=== PATIENT | male | born 1965 | race Caucasian/White ===

== ENCOUNTER 2023-11-28 08:13 | Emergency (ER) | payer BC, SELFPAY ==
[2023-11-28 08:28] VITALS: BP 133/85; PULSE 87; RESP 18; TEMP 36.9; O2SAT 94
[2023-11-28 09:09] LABS: Basophils % 0.6 %; Eosinophils # 0.1 10^3/uL (0.0-0.8); Eosinophils % 2.1 %; Hematocrit 43.3 % (37-53); Lymphocytes # 1.6 10^3/uL (0.8-4.8); Mean Corpuscular HGB Conc 34.2 g/dL (30-55); Mean Corpuscular Hemoglobin 31.2 pg (27-33); Mean Corpuscular Volume 91.4 fl (82-101); Monocytes # 0.8 10^3/uL (0.2-0.9); Monocytes % 11.4 %; Neutrophils % 62.2 %; Nucleated Red Blood Cells % 0 %; Platelet Count 203 10^3/cmm (157-399); Red Blood Count 4.74 10^6/uL (3.85-5.65); Red Cell Distribution Width 12.2 % (12.1-15.1); White Blood Count 6.75 10^3/uL (3.29-11.43)
[2023-11-28 09:26] LABS: Alanine Aminotransferase 15 U/L (0-41); Alkaline Phosphatase 60 U/L (40-130); Aspartate Amino Transferase 13 U/L (0-40); Blood Urea Nitrogen 24 mg/dL (6-20); Calcium 9.1 mg/dL (8.5-10.5); Carbon Dioxide 24 mmol/L (22-29); Chloride 102 mmol/L (98-107); Globulin 3.4 g/dL (1.3-4.6); Glucose 109 mg/dL (65-115); Osmolality Calculated 287 mOsm/kg (285-295); Sodium 136 mmol/L (136-145); Total Bilirubin 0.5 mg/dL (0.15-1.2); Total Protein 7.4 g/dL (6.6-8.7)
[2023-11-28] MEDS: sodium chloride 0.9% 1,000 ML 999 ML IV (09:33)
[2023-11-28] MEDS: ketorolac 30 mg/mL INJ IVP (09:34)
--- NOTE | 2023-11-28 09:47 | ED_ITS ---
HPI - Headache 2 General: Chief Complaint: Headache Stated Complaint: headache Time Seen by Provider: 11/28/23 08:18 Source: patient Mode of arrival: ambulatory History of Present Illness: 58-year-old male presents emergency room complaining of frontal sinus pain and pressure generally not feeling well night sweats last cough cold and flu symptoms. No shortness of breath no chest pain. MD elicited complaint: headache Onset (ago): day(s) Onset description: gradually Location: frontal Quality & Timing: throbbing Exacerbating factors: none Relieving factors: nothing Associated symptoms: Deny chest pain, cough, diaphoresis, eye pain, eye redness, fever(s), lightheadedness, loss of vision, malaise, nausea, neck stiffness, numbness, paresthesias, photophobia, pre-syncope, seizures, short of breath, sound sensitivity, syncope, vomiting or weakness Treatments prior to arrival: none Review of Systems 2 Const: Denies: fever(s), chills, malaise or diaphoresis ENMT: Reports: nasal discharge, nasal congestion and sinus pain Card: Denies: chest pain, lightheadedness, syncope or pre-syncope Resp: Denies: dyspnea GI: Denies: abdominal pain, nausea or vomiting Physical Exam 2 Const: GENERAL APPEARANCE: cooperative and comfortable O RIENTATION/CONSCIOUSNESS: Yes awake, Yes oriented to person, Yes oriented to place and Yes oriented to time HENMT: COMMON NORMALS: normocephalic, atraumatic and hearing grossly normal bilaterally HEAD & SCALP: normocephalic and atraumatic Eye: DIRECT OPHTHALMOSCOPY: No photophobia Resp: COMMON NORMALS: normal respiratory effort, No retractions, No use of accessory muscles and clear to auscultation bilaterally AUSCULTATION: clear to auscultation bilaterally Cardio: COMMON NORMALS: regular rate, regular rhythm and No murmurs present (Cardio) RATE: regular rate RHYTHM: regular rhythm Neuro: SENSORIUM/ORIENTATION: Yes oriented to person, Yes oriented to place and Yes oriented to time Skin: COMMON NORMALS: no rashes or lesions noted GENERAL SKIN EXAM: no rashes or lesions noted Course 2 Vital Signs: Vital signs: Vital Signs Temperature 98.4 F 11/28/23 10:11 Pulse Rate 87 11/28/23 10:11 Respiratory Rate 18 11/28/23 10:11 Blood Pressure 133/85 11/28/23 10:11 Pulse Oximetry 94 11/28/23 10:11 Oxygen Delivery Me thod Room Air 11/28/23 08:28 MDM - Headache Medical Decision Making Frontal sinusitis. Patient given IV clindamycin here discharged home on steroids oral Augmentin for 10 days as well as pseudoephedrine as needed. Follow-up with primary care if not improving Medical Records I reviewed the patient's medical records. Lab Data I reviewed the patient's lab results. 11/28/23 09:04 11/28/23 09:04 Laboratory Results WBC 6.75 10^3/uL (3.29-11.43) 11/28/23 09:04 RBC 4.74 10^6/uL (3.85-5.65) 11/28/23 09:04 Hgb 14.80 g/dL (11.27-16.99) 11/28/23 09:04 Hct 43.3 % (37-53) 11/28/23 09:04 MCV 91.4 fl (82-101) 11/28/23 09:04 MCH 31.2 pg (27-33) 11/28/23 09:04 MCHC 34.2 g/dL (30-55) 11/28/23 09:04 RDW 12.2 % (12.1-15.1) 11/28/23 09:04 Plt Count 203 10^3/cmm (157-399) 11/28/23 09:04 MPV 10.0 fL (7.4-10.4) 11/28/23 09:04 Neut % (Auto) 62.2 % 11/28/23 09:04 Lymph % (Auto) 23.0 % 11/28/23 09:04 [place] % (Auto) 11.4 % 11/28/23 09:04 Eos % (Auto) 2.1 % 11/28/23 09:04 Baso % (Auto) 0.6 % 11/28/23 09:04 Neut # (Auto) 4.20 10^3/uL (1.8-7.7) 11/28/23 09:04 Lymph # (Auto) 1.6 10^3/uL (0.8-4.8) 11/28/23 09:04 [place] # (Auto) 0.8 10^3/uL (0.2-0.9) 11/28/23 09:04 Eos # (Auto) 0.1 10^3/uL (0.0-0.8) 11/28/23 09:04 Baso # (Auto) 0.0 10^3/uL (0.0-0.1) 11/28/23 09:04 Nucleated RBC % (auto) 0 % 11/28/23 09:04 Nucleated RBCs # 0.0 /100WBC 11/28/23 09:04 Sodium 136 mmol/L (136-145) 11/28/23 09:04 Potassium 4.0 mmol/L (3.5-5.1) 11/28/23 09:04 Chloride 102 mmol/L (98-107) 11/28/23 09:04 Carbon Dioxide 24 mmol/L (22-29) 11/28/23 09:04 Anion Gap 14.0 (5-19) 11/28/23 09:04 BUN 24 mg/dL (6-20) H 11/28/23 09:04 Creatinine 0.8 mg/dL (0.7-1.2) 11/28/23 09:04 GFR Calculation 100.0 mL/min (90-130) 11/28/23 09:04 Glucose 109 mg/dL (65-115) 11/28/23 09:04 Calculated Osmolality 287 mOsm/kg (285-295) 11/28/23 09:04 Calcium 9.1 mg/dL (8.5-10.5) 11/28/23 09:04 Total Bilirubin 0.5 mg/dL (0.15-1.2) 11/28/23 09:04 AST 13 U/L (0-40) 11/28/23 09:04 ALT 15 U/L (0-41) 11/28/23 09:04 Alkaline Phosphatase 60 U/L (40-130) 11/28/23 09:04 Total Protein 7.4 g/dL (6.6-8.7) 11/28/23 09:04 Albumin 4.0 g/dL (3.5-5.2) 11/28/23 09:04 Globulin 3.4 g/dL (1.3-4.6) 11/28/23 09:04 No radiology studies performed this visit Discharge Plan Discharge Patient Disposition: Home Clinical Impression: Sinusitis Condition: Stable Prescriptions: New amoxicillin-pot clavulanate 875-125 mg tablet 1 tab PO BID Qty: 20 0RF pseudoephedrine HCl 120 mg tablet extended release 120 mg PO BID PRN (Reason: nasal congestion) Qty: 20 0RF prednisone 20 mg tablet 20 mg PO TID Qty: 15 0RF Rx Instructions: 1 p.o. 3 times daily x3 days, 1 p.o. twice daily x2 days, 1 p.o. daily x2 days Discharge Orders: Discharge ED (Routine); Ordered 11/28/23 Ordered By: Jc Rothman Discharge Diet: Usual diet Discharge Activity: Resume usual activity Patient Instructions: Sinusitis (ED), Opioid Safety, Pain Management Activity Restrictions/Additional Instructions: Thank you for choosing [facility] for your healthcare needs today. Please realize this is an emergency room and that we are providing you with a medical screening exam and this may not be complete and all inclusive of all the testing and or work up that you may need to determine your ailment or severity of your illness. It is very important that you follow up as instructed or that you return to the Emergency Department should you have concerns or if your condition changes or worsens in any way. Coding Level of Care Code ED Info Analyst for Willam Martinez
[2023-11-28] MEDS: clindamycin 900 MG/50 ML PREMIX 100 MG IV (09:59)
[2023-11-28 10:11] VITALS: BP 133/85; PULSE 87; RESP 18; TEMP 36.9; O2SAT 94
== END 2023-11-28 10:12 | disposition home or self-care (01) ==
PROVIDERS: Emergency Provider Family Medicine
DX: J32.9 Chronic sinusitis, unspecified (principal)
CPT/HCPCS: 36415; 80053; 85025; 96374; 96375; 99284; J1885; J3490; J7030